=== PATIENT | female | born 1940 | race Two or more races ===

== ENCOUNTER 2018-10-26 13:37 | Outpatient (CLI) | payer OTHER | END 2018-10-26 13:39 | disposition home or self-care (01) | LOC: NUCLEAR 13:37 | DX: M81.0 Age-related osteoporosis without current pathological fracture (principal) ==

== ENCOUNTER 2020-01-09 14:59 | Outpatient (CLI) | payer OTHER | END 2020-01-09 15:05 | disposition home or self-care (01) | LOC: RAD 14:59 | PROVIDERS: ATTEND Orthopaedic Surgery Adult Reconstructive Orthopaedic Surgery | DX: M16.12 Unilateral primary osteoarthritis, left hip (principal); Z96.641 Presence of right artificial hip joint ==

== ENCOUNTER → 2020-01-17 17:35 | Outpatient (CLI) | payer OTHER | END | disposition home or self-care (01) | LOC: RAD 17:35 | PROVIDERS: ATTEND Physical Medicine & Rehabilitation | DX: M25.512 Pain in left shoulder (principal); M79.641 Pain in right hand; M79.642 Pain in left hand ==

== ENCOUNTER 2024-07-25 11:55 | Outpatient (CLI) | payer OTHER | END 2024-07-25 12:06 | disposition home or self-care (01) | LOC: RAD 11:55 | PROVIDERS: ATTEND Physical Medicine & Rehabilitation | DX: M65.811 Other synovitis and tenosynovitis, right shoulder (principal); M65.812 Other synovitis and tenosynovitis, left shoulder ==